=== PATIENT | female | born 1940 | race Caucasian/White ===

== ENCOUNTER → 2018-04-21 | Outpatient (CLI) | payer MEDICARE ==
[~2018-04-21] MED LIST: ALIGN4 MG PO; BIOTIN PO; CALCIUM PO; CRESTOR10 MG PO; DIOVAN160 MG PO; IOPAMIDOL 370 MG/ML 200 ML INFUS..BTL INJ ONE; LEXAPRO10 MG PO; OMEPRAZOLE40 MG PO; POTASSIUM PO; PRESERVISION T1 EACH PO; RIVASTIGMINE1.5 MG PO; SODIUM CHLORIDE 0.9% 50ML 50 ML ONE; VITAMIN B12 PO; VITAMIN C PO; VITAMIN D32000 UNIT PO
[2018-04-21 10:52] LABS: BLOOD UREA NITROGEN 7 mg/dL (7-26); BUN/CREATININE RATIO 10 (6-25); CREATININE, SERUM 0.68 mg/dL (0.57-1.11); EST GLOMERULAR FILTRATION RATE > 60 ML/MIN (60-)
--- NOTE | 2018-04-21 13:06 | Diagnostic Imaging Report ---
PROCEDURE: CT ABDOMEN AND PELVIS WITH CONTRAST TECHNIQUE: The abdomen and pelvis were scanned utilizing a multidetector helical scanner from the diaphragm to the lesser trochanter after the IV administration of 100 cc of Isovue 370 and the oral administration of 500 cc H20. Coronal and sagittal multiplanar reformations were obtained. COMPARISON: None. INDICATIONS: LT LOWER QUAD PAIN FINDINGS: LOWER THORAX: Coronary artery calcifications. HEPATOBILIARY: No focal hepatic lesions. Unchanged mild prominence of the CBD, status post cholecystectomy. SPLEEN: No splenomegaly. PANCREAS: No focal masses or ductal dilatation. ADRENALS: No adrenal nodules. KIDNEYS/URETERS: No hydronephrosis, stones, or solid mass lesions. PELVIC ORGANS/BLADDER: Pelvis is obscured by metal artifact. PERITONEUM / RETROPERITONEUM: No free air or fluid. LYMPH NODES: No lymphadenopathy. VESSELS: Scattered atherosclerotic calcifications. GI TRACT: No distention or wall thickening. Appendix is not visualized, however there are no secondary signs of appendicitis. Diverticulosis without CT evidence of diverticulitis. BONES AND SOFT TISSUES: Status post left total hip arthroplasty. Unchanged T11 compression fracture. Anterolisthesis of L4 on L5 is again noted. Small fat containing umbilical hernia. IMPRESSION: No acute findings in the abdomen or pelvis. Diverticulosis without CT evidence of diverticulitis. Dictated by: OLGA FRIEDMAN M.D. on 04/21/2018 at 13:12 Electronically approved by: OLGA FRIEDMAN M.D. on 04/21/2018 at 13:12
== END ==
LOC: CT 09:56
PROVIDERS: ATTEND Family Medicine
DX: R10.32 Left lower quadrant pain (principal)
CPT/HCPCS: 36415; 74177; 82565; 84520; Q9967